=== PATIENT | male | born 1940 | race Caucasian/White ===

== ENCOUNTER 2016-11-26 11:53 | Emergency (ER) | payer OTHER ==
[~2016-11-26] VITALS: Ht 167.6 cm; Wt 121.0 kg
[~2016-11-26 11:53] MED LIST: ALL100 PO; AMLO-110 PO; ASPI81TA28 PO; GLC500 PO; LSX20 PO; SIMV20TA5 PO
[2016-11-26 11:56] VITALS: TEMP 36.4; Ht 167.6 cm; Wt 121.0 kg
--- NOTE | 2016-11-26 12:42 | EMERGENCY ROOM VISIT NOTE ---
ED Visit Note First contact with patient: 12:05 CHIEF COMPLAINT: Wrist injury HISTORY OF PRESENT ILLNESS: This 76-year-old male patient presents to the emergency department ambulatory complaining of pain in the left hand and wrist after slipping while getting out of his truck. The patient states that he slipped off the running board and fell onto an outstretched left hand yesterday. He did not strike his head or have loss of consciousness. He denies any pain in his chest or trouble breathing. He denies any abdominal pain , nausea or vomiting. He denies any lower extremity pain. He denies any other injury or pain. The patient states that his home health nurse contacted the ambulance and sent him to the emergency department for evaluation of the hand. The patient is able to move their wrist. The patient states the pain is mild and 6/10. No laceration, no weakness. No numbness or tingling. The patient denies any other injury. The patient is able to move their fingers and elbow without difficulty. The patient has not had any previous injuries to this wrist. The patient has taken nothing for the pain. REVIEW OF SYSTEMS: A 6 system review of systems was performed with positives and pertinent negatives in the HPI. ALLERGIES: No known allergies MEDICATIONS: See nursing notes PMH: Diabetes, hyperlipidemia, gout SOCIAL HISTORY: The patient lives locally. He is a smoker PHYSICAL EXAM: Vital Signs: Reviewed Nurse's notes, vital signs stable. GENERAL : This is a 76-year-old male, in no acute distress, but appears to be in pain, well-developed, well-nourished. NEURO: Alert and oriented to person place and time. Normal sensation to light and sharp touch. MUSCULOSKELETAL: There is no deformity of the left wrist. There is no erythema and mild ecchymosis. There is mild edema. Tenderness over the distal radius. There is no snuff box tenderness. There is tenderness with deep palpation. Range of motion is intact. There is no tenderness of the elbow,or fingers. There is ecchymosis and tenderness to the left hand particularly over the fourth metacarpal. Botany Technician strength 5/5. Radial pulse 2+. SKIN: Normal and intact. The hand is warm and well perfused with capillary refill less than 2 seconds. EMERGENCY DEPARTMENT COURSE: I examined the patient. An X-ray of the left hand wrist were reviewed by myself and radiology and showed no fracture dislocation. A wrist lacer and kinsey wrap splint was placed under my direction and the position was satisfactory. Neurovascular status rechecked and intact. The patient was discharged home in good condition. The patient was also seen and examined by who agrees with the assessment and treatment plan. DISCHARGE INSTRUCTIONS & TREATMENT: Wear the wrist splint for 4 - 5 days until the pain subsides. Ice and keep the wrist elevated for 24-48 hrs. Ibuprofen, 600mg a every 6 hours if needed for the pain. Follow up with your family doctor or orthopedic surgeon if symptoms persist in 5-7 days. LEFT WRIST W/NAVICULAR MIN 3 VIEWS, LEFT HAND MIN 3 VIEWS ROUTINE CLINICAL HISTORY: left wrist and hand pain, fall COMPARISON STUDY: None. FINDINGS: The bones are osteopenic. 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 No fractures. No dislocation. IMPRESSION: No fracture or dislocation within the left hand or left wrist. LEFT WRIST W/NAVICULAR MIN 3 VIEWS, LEFT HAND MIN 3 VIEWS ROUTINE CLINICAL HISTORY: left wrist and hand pain, fall COMPARISON STUDY: None. FINDINGS: The bones are osteopenic. 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 No fractures. No dislocation. IMPRESSION: No fracture or dislocation within the left hand or left wrist. Problem List Medical Problems: (1) Diabetes Status: Chronic (2) HTN (hypertension) Status: Chronic Current/Historical Medications Scheduled Allopurinol (Zyloprim *), 100 MG PO BID Amlodipine (Norvasc), 5 MG PO DAILY Aspirin (Aspirin Ec), 81 MG PO DAILY Docusate Sodium (Docusate Sodium), 1 CAP PO DAILY Ferrous Gluconate (Ferrous Gluconate), 324 MG PO QAM Furosemide (Lasix *), 20 MG PO DAILY Glyburide (Micronase), 2.5 MG PO QAM Hydrocortisone 1% (Hydrocortisone 1%), 0 TOP UD Metformin HCL (Glucophage *), 1,000 MG PO BID Simvastatin (Zocor), 40 MG PO QPM [Bisacodyl Supp], 1 SUPP RE UD. Allergies Coded Allergies: No Known Allergies (Unverified , 11/26/16) Vital Signs Date Time Temp Pulse Resp B/P Pulse Ox O2 Delivery O2 Flow Rate FiO2 11/26/16 14:33 81 20 142/77 96 11/26/16 11:56 36.4 76 18 143/82 95 Room Air Departure Information Impression Primary Impression: Hand contusion Additional Impression: Wrist sprain Dispostion Home / Self-Care Condition GOOD Referrals Erlin Durham D.O. (PCP) Patient Instructions ED Contusion Hand, [facility] Additional Instructions Wear the wrist splint for 4 - 5 days until the pain subsides. Ice and keep the wrist elevated for 24-48 hrs. Ibuprofen, 600mg a every 6 hours if needed for the pain. Follow up with your family doctor or orthopedic surgeon if symptoms persist in 5-7 days. Problem Qualifiers Primary Impression: Hand contusion Encounter type: initial encounter Laterality: left Qualified Codes: S60.222A - Contusion of left hand, initial encounter Additional Impression: Wrist sprain Encounter type: initial encounter Laterality: left Qualified Codes: S63.502A - Unspecified sprain of left wrist, initial encounter
[2016-11-26] MEDS ORDERED: GLYB5TAB8 PO (12:46)
[2016-11-26] MEDS ORDERED: FERR325T18 PO (12:46)
[2016-11-26] MEDS ORDERED: HYDCR1CL TOP (12:46)
[2016-11-26] MEDS ORDERED: BISACODYL SUPP RE (12:46)
[2016-11-26] MEDS ORDERED: DOCU100C31 PO (12:46)
--- NOTE | 2016-11-26 13:30 | EMERGENCY ROOM VISIT NOTE ---
ED Visit Note First contact with patient: 12:05 76-year-old male with left hand pain was fully evaluated by Tita Angeles PA-C. Please see her note. I also independently evaluated the patient and his x-rays.
--- NOTE | 2016-11-26 13:32 | DIAGNOSTIC IMAGING REPORT ---
LEFT WRIST W/NAVICULAR MIN 3 VIEWS, LEFT HAND MIN 3 VIEWS ROUTINE CLINICAL HISTORY: left wrist and hand pain, fall COMPARISON STUDY: None. FINDINGS: The bones are osteopenic. 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 No fractures. No dislocation. IMPRESSION: No fracture or dislocation within the left hand or left wrist. Electronically signed by: Andrzej Mosqueda M.D. 11/26/2016 1:31 PM Dictated Date/Time: 11/26/2016 1:27 PM
[2016-11-26 14:33] VITALS: BP 142/77; PULSE 81; O2SAT 96
[2016-11-27] MEDS ORDERED: CIPR1TAB11 PO (00:26)
[2016-12-06] MEDS ORDERED: SENN8.6T7 PO (14:38)
[2016-12-06] MEDS ORDERED: MCTP EXT (14:38)
[2016-12-06] MEDS ORDERED: TYL325X PO (14:38)
[2016-12-06] MEDS ORDERED: Roxanol PO (14:38)
[2016-12-06] MEDS ORDERED: LCTL45 PO (14:38)
[2016-12-06] MEDS ORDERED: MRLP17 PO (14:38)
== END 2016-11-26 14:35 | disposition home or self-care (01) ==
LOC: EDBD 11:53 → C.EDD 11:54
DX: S60.222A Contusion of left hand, initial encounter (principal); S63.502A Unspecified sprain of left wrist, initial encounter; W17.89XA Other fall from one level to another, initial encounter; E11.9 Type 2 diabetes mellitus without complications; E78.5 Hyperlipidemia, unspecified; Z79.82 Long term (current) use of aspirin

== ENCOUNTER 2016-12-01 23:10 | Inpatient (IN) | payer OTHER ==
[~2016-12-01] VITALS: Ht 167.6 cm; Wt 122.2 kg
[~2016-12-01 23:10] MED LIST changes: +BISACODYL SUPP RE; +CIPR1TAB11 PO; +DOCU100C31 PO; +FERR325T18 PO; +GLYB5TAB8 PO; +HYDCR1CL TOP
--- NOTE | 2016-12-02 00:18 | EMERGENCY ROOM VISIT NOTE ---
History Report prepared by Jayshree: Yvon Tapia Under the Supervision of: Dr. Lakeisha Villagran D.O. First contact with patient: 23:59 Chief Complaint: OTHER COMPLAINT History of Present Illness The patient is a 76 year old male who presents to the Emergency Room with complaints of increased pain with urination. The pain is described as a burning sensation that is rated 8/10 in severity. He has also been dealing with urinary retention and hematuria. The patient was diagnosed with penile cancer several days ago by [facility]. They attempted to place a urinary catheter but were unsuccessful. The patient is not sure what the treatment plan is. The patient notes increased generalized weakness that is making it difficult for him to get around. He normally ambulates with a walker. The patient has been eating and drinking okay. He denies shortness of breath or abdominal pain. He has also been constipated. The patient came to the ED by ambulance tonight. He takes Metformin for Diabetes. He lives alone and does not have family to help him. He has a friend that occasionally helps take care of him, and his neighbor prepares his meals. Source of History: patient Position: other (urinary) Symptom Intensity: 8/10 Quality: burning Timing: other (increased) Associated Symptoms: + urinary symptoms, + weakness, No SOB, No abdominal pain Review of Systems See HPI for pertinent positives & negatives. A total of 10 systems reviewed and were otherwise negative. Past Medical & Surgical Medical Problems: (1) Diabetes (2) Gout (3) HLD (hyperlipidemia) (4) HTN (hypertension) (5) Urinary retention Family History Diabetes mellitus Social History Smoking Status: Current Every Day Smoker Marital Status: Housing Status: lives alone Occupation Status: retired Current/Historical Medications Scheduled Allopurinol (Zyloprim), 100 MG PO DAILY Amlodipine (Norvasc), 5 MG PO DAILY Aspirin (Aspirin Ec), 81 MG PO DAILY Ciprofloxacin Tab (Cipro), 250 MG PO Q12 Docusate Sodium (Docusate Sodium), 100 MG PO DAILY Ferrous Gluconate (Fe Gluconate), 325 MG PO DAILY Furosemide (Lasix), 20 MG PO QAM Furosemide (Lasix), 20 MG PO 2XWK Metformin Hcl (Glucophage), 1,000 MG PO BID Allergies Coded Allergies: No Known Allergies (Unverified , 11/26/16) Physical Exam Vital Signs Date Time Temp Pulse Resp B/P Pulse Ox O2 Delivery O2 Flow Rate FiO2 12/02/16 02:37 69 19 128/71 94 12/02/16 01:07 64 19 125/83 96 Room Air 12/01/16 23:16 36.7 72 20 106/64 96 Room Air Physical Exam General: Unkempt appearing. HEENT: Head - normocephalic and atraumatic Pupils are equal, round, and reactive to light. Extraocular eye muscles are intact, and sclera are anicteric. Nose - moist nasal mucosa without discharge. Mouth - dry buccal mucosa. Oropharynx is nonerythematous and there is no tonsillar exudate or edema noted. Neck: Supple; no JVD, nuchal rigidity, cervical lymphadenopathy. Heart: Regular rate and rhythm. There is a normal S1 and S2 with no murmurs, clicks, or gallops appreciated. Lungs: Clear to auscultation bilaterally with no wheezes, rales, or rhonchi. Abdomen: Soft, completely nontender, nondistended, with good bowel sounds. There are no palpable pulsatile masses or hepatosplenomegaly. There is no guarding, rigidity, or rebound noted. Extremities: No evidence of cyanosis, clubbing, or edema. There are easily palpable peripheral pulses. Skin: Skin is dry with poor turgor.. Medical Decision & Procedures Laboratory Results Test 12/02/16 00:28 12/02/16 01:51 RDW Standard Deviation 47.4 fL (36.4-46.3) RDW Coefficient of Variation 13.7 % (11.5-14.5) White Blood Count 20.83 K/uL (4.8-10.8) Red Blood Count 4.70 M/uL (4.7-6.1) Hemoglobin 15.5 g/dL (14.0-18.0) Hematocrit 44.8 % (42-52) Mean Corpuscular Volume 95.3 fL (80-100) Mean Corpuscular Hemoglobin 33.0 pg (25-34) Mean Corpuscular Hemoglobin Concent 34.6 g/dl (32-36) Platelet Count 418 K/uL (130-400) Mean Platelet Volume 10.0 fL (7.4-10.4) Neutrophils (%) (Auto) 82.7 % Lymphocytes (%) (Auto) 8.1 % Monocytes (%) (Auto) 7.3 % Eosinophils (%) (Auto) 0.3 % Basophils (%) (Auto) 0.1 % Neutrophils # (Auto) 17.20 K/uL (1.4-6.5) Lymphocytes # (Auto) 1.68 K/uL (1.2-3.4) Monocytes # (Auto) 1.53 K/uL (0.11-0.59) Eosinophils # (Auto) 0.07 K/uL (0-0.5) Basophils # (Auto) 0.03 K/uL (0-0.2) Immature Granulocyte % (Auto) 1.5 % Immature Granulocyte # (Auto) 0.32 K/uL (0.00-0.02) Prothrombin Time 13.1 SECONDS (9.0-12.0) Prothromb Time International Ratio 1.2 (0.9-1.1) Activated Partial Thromboplast Time 31.8 SECONDS (21.0-31.0) Partial Thromboplastin Ratio 1.2 Total Creatine Kinase 22 U/L (39-308) Creatine Kinase MB < 0.5 ng/ml (0.5-3.6) Creatine Kinase MB Ratio (0-3.0) Troponin I 0.016 ng/ml (0-0.045) Thyroid Stimulating Hormone (TSH) 0.571 uIu/ml (0.300-4.500) Bedside Lactic Acid Venous 1.78 mmol/L (0.90-1.70) Laboratory results per my review. Medications Administered Medications (Trade) Dose Ordered Sig/Lorena Route Start Time Stop Time Status Last Admin Dose Admin Daptomycin 600 mg/ Sodium Chloride 62 ml @ 100 mls/hr NOW STAT IV 12/02/16 02:18 12/02/16 02:55 DC 12/02/16 03:14 100 MLS/HR Imipenem/ Cilastatin Sodium/ Dextrose (Primaxin Iv/D5 100ml) 110 ml @ 100 mls/hr NOW STAT IV 12/02/16 02:18 12/02/16 03:23 DC 12/02/16 03:14 100 MLS/HR Procedure Medications administered include Imipenem / Cilastatin Sodium / Dextrose IV, Daptomycin / NSS IV. ECG Indication: weakness Rate (beats per minute): 71 Rhythm: normal sinus Findings: PVC, RBBB, no acute ischemic change Comparison ECG Date: 2015 Change: no significant change ED Course 0003: Past medical records reviewed. The patient was evaluated in room C12b. A complete history and physical exam was performed. An IV lock was initiated and labs are drawn as above. A twelve-lead EKG was obtained as described above. 0040: The patient saw his PCP, Dr. Durham, on 11/27. He had CT Abdomen & Pelvis on 11/28 that showed an irregular mass at the right lung base. He had an abnormally appearing scrotum which could potentially represent malignancy or infection. Significant inguinal lymphadenopathy, left greater than right. He saw Dr. Parnell, Urologist, on November 22. She noted a growth on his penis. Urethral meatus was not visualized. Infected necrotic tissue was noted. He was started antibiotics. 0119: The patient has been unable to urinate thus far. 0210: Updated the patient. 0218: Imipenem / Cilastatin Sodium 500 mg / Dextrose 110 ml @ 100 mls/hr, Daptomycin 600 mg / NSS 62 ml @ 100 mls/hr. 0220: Discussed the case with Dr. [facility]. The patient will be evaluated. 0230: The patient was moved to . Medical Decision The patient is a 76 year old male who presents to the ED with urinary burning. Differential diagnosis includes UTI, urinary retention, anemia, hyperglycemia. Laboratory interpretation: Lactic acid 1.78, white count 20.8, stable H&H, 82% neutrophils, normal renal function, glucose 113, total bilirubin 1.4, direct bilirubin 0.9, AST 88, ALT 82, alk phos 308, normal TSH, INR 1.2. This is a 76-year-old male patient who presents to urgency department stating that he is unable take care of himself at home. The patient was recently diagnosed with penile cancer. They attempted to pass a urinary catheter last week but were unsuccessful. The patient is now unable to urinate normally. The patient did meet with urology and refused any type of intervention except for catheter placement. He does wish to go on hospice care. It seems that the patient may require a suprapubic catheter at this time for comfort care measures. The patient has become extremely weak. He has significant leukocytosis with a white count of 20.8. We were unable to obtain a urine specimen for urinalysis. He was able to give a couple drops of urine which will be sent for culture. The patient was started on daptomycin and Primaxin. I discussed the case with the [facility] and they will evaluate for further management. Consults Time Called: 209 Consulting Physician[facility] Returned Call: [phone]: Discussed the case with Perez Moore. The patient will be evaluated. Impression Primary Impression: Urinary retention Additional Impression: SIRS (systemic inflammatory response syndrome) Scribe Attestation The scribe's documentation has been prepared under my direction and personally reviewed by me in its entirety. I confirm that the note above accurately reflects all work, treatment, procedures, and medical decision making performed by me. Departure Information Dispostion Being Evaluated By Hospitalist Referrals Erlin Durham D.O. (PCP) Patient Instructions [facility] Problem Qualifiers
[2016-12-02] MEDS ORDERED: ALLO100T PO (00:22)
[2016-12-02] MEDS ORDERED: FERR325T49 PO (00:22)
[2016-12-02] MEDS ORDERED: METF-384 PO (00:25)
[2016-12-02] MEDS ORDERED: FURO-85 PO ×2 (00:25)
[2016-12-02 00:39] LABS: BASO % 0.1 %; BASO ABS # 0.03 K/uL (0-0.2); COMPLETE YES; EOS % 0.3 %; HEMATOCRIT 44.8 % (42-52); IG% 1.5 %; LYMPH % 8.1 %; LYMPH ABS # 1.68 K/uL (1.2-3.4); MEAN CELL VOLUME 95.3 fL (80-100); MEAN CORPUSCULAR HGB CONC 34.6 g/dl (32-36); MONO % 7.3 %; NEUT % 82.7 %; PLATELET COUNT 418 K/uL (130-400); WHITE BLOOD COUNT 20.83 K/uL (4.8-10.8)
[2016-12-02 00:52] LABS: INR 1.2 (0.9-1.1); PARTIAL THROMBOPLASTIN RATIO 1.2; PROTHROMBIN TIME (PATIENT) 13.1 SECONDS (9.0-12.0)
[2016-12-02 01:14] LABS: ALT/SGPT 82 U/L (12-78); AST/SGOT 88 U/L (15-37); BLOOD UREA NITROGEN 16 mg/dl (7-18); BUN/CREATININE RATIO 16.2 (10-20); CARBON DIOXIDE 34 mmol/L (21-32); CHLORIDE 95 mmol/L (98-107); GLUCOSE 113 mg/dl (70-99); SODIUM 135 mmol/L (136-145)
[2016-12-02 01:25] LABS: ALKALINE PHOSPHATASE 308 U/L (45-117); THYROID STIMULATING HORMONE 0.571 uIu/ml (0.300-4.500)
[2016-12-02] MEDS ORDERED: DAPTOmycin IV 600 MG in SODIUM CHLORIDE 0.9% 50ML 50 ML IV STA (02:18)
[2016-12-02] MEDS ORDERED: IMIPENEM/CILASTATIN IV 500 MG in DEXTROSE 5% 100ML 100 ML IV STA (02:18)
--- NOTE | 2016-12-02 03:09 | History and Physical ---
History & Physical Date & Time of Service: Dec 02, 2016 at 03:08 Chief Complaint: Primary Care Physician: Erlin Durham D.O. 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 Seen at [facility] clinic by Dr Parnell on -for evaluation of Hematuria , bladder USG shows numerous mass, has necrotic growth in penis very advanced malignancy with localized invasion -necrosis of penis , pt refused to have any chemo , radiation tx done Hospice was recommended by Urology pt lives by himself alone , with metastatic Ca very poor prognosis, failure to thrive D/w Pt at bedside -willing for comfort care /hospice social service /palliative care consult requested Past Medical/Surgical History Medical Problems: (1) Diabetes Status: Chronic (2) Gout Status: Chronic (3) HLD (hyperlipidemia) Status: Chronic (4) HTN (hypertension) Status: Chronic Family History Diabetes mellitus Social History Smoking Status: Current Every Day Smoker Marital Status: Occupational Status: retired Immunizations History of Influenza Vaccine: Yes History of Tetanus Vaccine?: No History of Pneumococcal: No History of Hepatitis B Vaccine: No Allergies Coded Allergies: No Known Allergies (Unverified , 11/26/16) Home Medications Scheduled Allopurinol (Zyloprim), 100 MG PO DAILY Amlodipine (Norvasc), 5 MG PO DAILY Aspirin (Aspirin Ec), 81 MG PO DAILY Ciprofloxacin Tab (Cipro), 250 MG PO Q12 Docusate Sodium (Docusate Sodium), 100 MG PO DAILY Ferrous Gluconate (Fe Gluconate), 325 MG PO DAILY Furosemide (Lasix), 20 MG PO QAM Furosemide (Lasix), 20 MG PO 2XWK Metformin Hcl (Glucophage), 1,000 MG PO BID Review of Systems Constitutional: + fatigue, + sweats, + weakness, + weight loss Respiratory: + dyspnea at rest, + dyspnea on exertion, + shortness of breath Cardiovascular: + edema Abdomen: + constipation, + nausea, + vomiting Musculoskeletal: + joint pain Genitourinary - Male: + hematuria, + penile discharge, + problem reported ( metastastic penile Ca ), + urinary retention Neurologic: + balance problems (frequen fall ) Physical Exam Vital Signs Date Time Temp Pulse Resp B/P Pulse Ox O2 Delivery O2 Flow Rate FiO2 12/02/16 02:37 69 19 128/71 94 12/02/16 01:07 64 19 125/83 96 Room Air 12/01/16 23:16 36.7 72 20 106/64 96 Room Air General Appearance: + obese Eyes: sclerae normal Respiratory/Chest: lungs clear, normal breath sounds, no respiratory distress Cardiovascular: regular rate, rhythm Abdomen/GI: soft, + distended Genitourinary - Male: + penile abnormality (complete destruction of uretheal orifice due cancer , red indudated scrotum with foul smelling , necrotic tisseue and pulurent drainage ), + urethral discharge Extremities/Musculoskelatal: + pedal edema (2-3 ) Neurologic/Psych: alert, oriented x 3 Diagnostics Laboratory Results Results Past 24 Hours Test 12/02/16 00:28 12/02/16 01:51 Range/Units White Blood Count 20.83 4.8-10.8 K/uL Red Blood Count 4.70 4.7-6.1 M/uL Hemoglobin 15.5 14.0-18.0 g/dL Hematocrit 44.8 42-52 % Mean Corpuscular Volume 95.3 80-100 fL Mean Corpuscular Hemoglobin 33.0 25-34 pg Mean Corpuscular Hemoglobin Concent 34.6 32-36 g/dl Platelet Count 418 130-400 K/uL Mean Platelet Volume 10.0 7.4-10.4 fL Neutrophils (%) (Auto) 82.7 % Lymphocytes (%) (Auto) 8.1 % Monocytes (%) (Auto) 7.3 % Eosinophils (%) (Auto) 0.3 % Basophils (%) (Auto) 0.1 % Neutrophils # (Auto) 17.20 1.4-6.5 K/uL Lymphocytes # (Auto) 1.68 1.2-3.4 K/uL Monocytes # (Auto) 1.53 0.11-0.59 K/uL Eosinophils # (Auto) 0.07 0-0.5 K/uL Basophils # (Auto) 0.03 0-0.2 K/uL RDW Standard Deviation 47.4 36.4-46.3 fL RDW Coefficient of Variation 13.7 11.5-14.5 % Immature Granulocyte % (Auto) 1.5 % Immature Granulocyte # (Auto) 0.32 0.00-0.02 K/uL Prothrombin Time 13.1 9.0-12.0 SECONDS Prothromb Time International Ratio 1.2 0.9-1.1 Activated Partial Thromboplast Time 31.8 21.0-31.0 SECONDS Partial Thromboplastin Ratio 1.2 Sodium Level 135 136-145 mmol/L Potassium Level 4.0 3.5-5.1 mmol/L Chloride Level 95 98-107 mmol/L Carbon Dioxide Level 34 21-32 mmol/L Anion Gap 6.0 3-11 mmol/L Blood Urea Nitrogen 16 7-18 mg/dl Creatinine 1.00 0.60-1.40 mg/dl Estimated GFR () 83.8 Estimated GFR (Non- 72.3 BUN/Creatinine Ratio 16.2 10-20 Random Glucose 113 70-99 mg/dl Calcium Level 10.0 8.5-10.1 mg/dl Total Bilirubin 1.4 0.2-1 mg/dl Direct Bilirubin 0.9 0-0.2 mg/dl Aspartate Amino Transf (AST/SGOT) 88 15-37 U/L Alanine Aminotransferase (ALT/SGPT) 82 12-78 U/L Alkaline Phosphatase 308 45-117 U/L Total Creatine Kinase 22 39-308 U/L Creatine Kinase MB < 0.5 0.5-3.6 ng/ml Creatine Kinase MB Ratio 0-3.0 Troponin I 0.016 0-0.045 ng/ml Total Protein 8.1 6.4-8.2 gm/dl Albumin 2.1 3.4-5.0 gm/dl Thyroid Stimulating Hormone (TSH) 0.571 0.300-4.500 uIu/ml Bedside Lactic Acid Venous 1.78 0.90-1.70 mmol/L Microbiology Results 12/02/16 Blood Culture, Received Pending 12/02/16 Blood Culture, Received Pending 12/02/16 Urine Culture, Received Pending Diagnostic Radiology CT SCAN OF THE ABDOMEN AND PELVIS WITHOUT IV CONTRAST CLINICAL HISTORY: Generalized abdominal pain. IMPRESSION: 1. Significantly suboptimal examination without oral and IV contrast. 2. There are no acute infectious or inflammatory findings in the abdomen or pelvis. 3. There is a 3.2 cm spiculated mass at the right lung base. This is highly concerning for lung cancer. 4. There are additional pulmonary nodules seen in the lower lobes bilaterally. 5. Cirrhotic liver morphology. 6. Cholelithiasis. 7. Cardiomegaly. 8. Enlarged inguinal lymph nodes are nonspecific and may be reactive. Clinical correlation will be required. 9. Additional findings as above. ABDOMINAL ULTRASOUND, RIGHT UPPER QUADRANT HISTORY: Elevated liver function tests. COMPARISON: CT of the abdomen and pelvis December 02, 2016. FINDINGS: Hepatic echogenicity is increased. There is slight nodularity of the liver surface with heterogeneity of the liver which may reflect cirrhosis. No hepatic lesions are identified although sensitivity is diminished on this exam. There is no biliary ductal dilatation. There is a gallstone within the gallbladder. There is no gallbladder wall thickening. The pancreas is obscured. There is no right hydronephrosis. There is a 2.2 cm right renal cyst. IMPRESSION: 1. Fatty liver. 2. Slight nodularity of the liver surface and heterogeneity of the liver which may reflect cirrhosis. 3. No biliary ductal dilatation. 4. Cholelithiasis. No sonographic evidence of acute cholecystitis. 5. Obscured pancreas. Impression Assessment and Plan METASTATIC PENILE .SCROTAL .BLADDER CA; hx of life long smoker recently Dx at Urology office on 11/22/16 -with wide spread metastatic Ca and locally advanced disease Pt refused to have chemo or radiation given his co-morbidities -not a candidate for aggressive treatment presented with Urinary retention , sepsis due to UTI , weakness, fall , failure to thrive after D/w Dr Parnell -pt was already discussed regarding Hospice care in office palliative care consult placed D/w pt -in agreement with comfort care , does not want blood draw , ABx treatment as it will not provide any benefit to him at this stage wants pain to be well controlled and manage constipation given his advanced malignancy , ongoing sepsis , urinary retention -do not belief pt will be have to have hospice care at home ( lives alone , with none or limited family support ) pt is concerned regarding cost /insurance coverage for hospice care Social service consulted for discharge planning DNR/DNI Level of Care Med/Surg Resuscitation Status DO NOT RESUSCITATE VTE Prophylaxis VTE Risk Assessment Done? Y/N: Yes Risk Level: Moderate Additional Copies To Lindsey Parnell MD; Erlin Durham D.O.
[2016-12-02] MEDS ORDERED: GLUCOSE 40% GEL 15 GM TUBE PO PRN (03:15)
[2016-12-02] MEDS ORDERED: POLYETHYLENE (MIRALAX) 17 GM PACK PO PRN (03:15)
[2016-12-02] MEDS ORDERED: ONDANSETRON INJ 2 MG/ML 2 ML VIAL IV PRN (03:15)
[2016-12-02] MEDS ORDERED: ALUMINUM/MAGNESIUM/SIMETH (MAALOX MAX) 30 ML UDC PO PRN (03:15)
[2016-12-02] MEDS ORDERED: GLUCOSE 10 TABS/TUBE PO PRN (03:15)
[2016-12-02] MEDS ORDERED: DEXTROSE 50% 50 ML SYR IV PRN (03:15)
[2016-12-02] MEDS ORDERED: MoRPHine SULFATE 2 MG/ML CARP IV PRN ×2 (03:15)
[2016-12-02] MEDS ORDERED: ZOLPIDEM TARTRATE 5 MG TAB PO PRN (03:15)
[2016-12-02] MEDS ORDERED: MAGNESIUM HYDROXIDE SUSP 30 ML UDC PO PRN (03:15)
[2016-12-02] MEDS ORDERED: ACETAMINOPHEN 325 MG TAB PO PRN (03:15)
[2016-12-02] MEDS ORDERED: GLUCAGON FOR INJ 1 MG VIAL SQ PRN (03:15)
[2016-12-02 04:15] VITALS: BP 153/51; PULSE 70; TEMP 36.8; O2SAT 91; BMI 43.5
[2016-12-02] MEDS ORDERED: NURSING DECISION MEDICATION ORDER SCH (05:30)
[2016-12-02] MEDS ORDERED: MICONAZOLE NITRATE POWDER 43 GM EXT PRN (05:30)
[2016-12-02] MEDS ORDERED: CEFTRIAXONE SOD INJ 1 GM in DEXTROSE 5% ADD-VANTAGE 50ML 50 ML IV SCH (06:00)
[2016-12-02] MEDS ORDERED: HEPARIN SOD 5000 UNIT/0.5 ML CARP SQ SCH (06:00)
[2016-12-02 06:47] LABS: HEMATOCRIT 41.4 % (42-52); MEAN CELL VOLUME 94.7 fL (80-100); MEAN CORPUSCULAR HEMOGLOBIN 32.5 pg (25-34); MEAN CORPUSCULAR HGB CONC 34.3 g/dl (32-36); PLATELET COUNT 423 K/uL (130-400); RED BLOOD COUNT 4.37 M/uL (4.7-6.1); WHITE BLOOD COUNT 22.49 K/uL (4.8-10.8)
[2016-12-02] MEDS ORDERED: INSULIN HUMAN REGULAR SC SCH (07:00)
[2016-12-02 07:20] LABS: BUN/CREATININE RATIO 19.6 (10-20); CALCIUM 9.9 mg/dl (8.5-10.1); CREATININE 0.9 mg/dl (0.60-1.40); POTASSIUM 3.9 mmol/L (3.5-5.1)
--- NOTE | 2016-12-02 07:20 | DIAGNOSTIC IMAGING REPORT ---
ABDOMINAL ULTRASOUND, RIGHT UPPER QUADRANT HISTORY: Elevated liver function tests. COMPARISON: CT of the abdomen and pelvis December 02, 2016. FINDINGS: Hepatic echogenicity is increased. There is slight nodularity of the liver surface with heterogeneity of the liver which may reflect cirrhosis. No hepatic lesions are identified although sensitivity is diminished on this exam. There is no biliary ductal dilatation. There is a gallstone within the gallbladder. There is no gallbladder wall thickening. The pancreas is obscured. There is no right hydronephrosis. There is a 2.2 cm right renal cyst. IMPRESSION: 1. Fatty liver. 2. Slight nodularity of the liver surface and heterogeneity of the liver which may reflect cirrhosis. 3. No biliary ductal dilatation. 4. Cholelithiasis. No sonographic evidence of acute cholecystitis. 5. Obscured pancreas. Electronically signed by: Wilbur Cary M.D. 12/02/2016 7:17 AM Dictated Date/Time: 12/02/2016 7:15 AM
--- NOTE | 2016-12-02 07:43 | DIAGNOSTIC IMAGING REPORT ---
CT SCAN OF THE ABDOMEN AND PELVIS WITHOUT IV CONTRAST CLINICAL HISTORY: Generalized abdominal pain. COMPARISON STUDY: No priors. TECHNIQUE: CT scan of the abdomen and pelvis is performed from the lung bases to the proximal femora. Images are reviewed in the axial, sagittal, and coronal planes. IV contrast was not administered for this examination as per the referring clinician. Note that the examination was performed in significantly suboptimal fashion without oral and IV contrast. Automated dose control exposure was utilized. CT DOSE: 2008.50 mGy.cm FINDINGS: Lung bases: The heart is enlarged and without pericardial effusion. The coronary arteries are densely calcified. There is a tiny hiatal hernia. There is a 3.2 x 1.9 cm spiculated mass at the right lung base seen on axial image #105. A 9 mm nodule in the right lower lobe as seen on image #73. A 6 mm left lower lobe pulmonary nodule is seen on image #25. There is no airspace consolidation typical for pneumonia or pleural effusion. Liver: The unenhanced liver is cirrhotic in morphology and heterogeneous in attenuation. There is nodularity of the surface contour. There is no intrahepatic biliary ductal dilatation. Gallbladder: There are calcified gallstones identified. Spleen: Normal in size and attenuation. Tiny calcified splenic granulomas are observed. Pancreas: Atrophic. Adrenal glands: Unremarkable. Kidneys: The unenhanced kidneys are atrophic and without hydronephrosis. There are no renal calculi identified. There is a 1.9 cm cyst in the lower pole of the right kidney. Abdominal vasculature: The abdominal aorta is normal in course and caliber noting moderate to advanced atherosclerotic calcification. Bowel: The small bowel and colon are normal in course and caliber. The appendix is normal in appearance. Peritoneum: There is no intraperitoneal free air or abdominal ascites. Lymphadenopathy: There are mildly enlarged bilateral inguinal lymph nodes which measure up to 2.2 cm in short axis. There is no upper abdominal, retroperitoneal, or mesenteric lymphadenopathy. 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 The pelvic viscera is not well assessed. There is a large fat-containing right inguinal hernia. Skeletal structures: The skeletal structures are osteopenic. Moderate lumbosacral spondylosis is observed. There is a mild compression deformity of L4. No lytic or blastic lesions are seen. IMPRESSION: 1. Significantly suboptimal examination without oral and IV contrast. 2. There are no acute infectious or inflammatory findings in the abdomen or pelvis. 3. There is a 3.2 cm spiculated mass at the right lung base. This is highly concerning for lung cancer. 4. There are additional pulmonary nodules seen in the lower lobes bilaterally. 5. Cirrhotic liver morphology. 6. Cholelithiasis. 7. Cardiomegaly. 8. Enlarged inguinal lymph nodes are nonspecific and may be reactive. Clinical correlation will be required. 9. Additional findings as above. Electronically signed by: Vini Rivers M.D. 12/02/2016 7:41 AM Dictated Date/Time: 12/02/2016 7:32 AM
[2016-12-02] MEDS ORDERED: PNEUMOCOCCAL POLYSACCHARIDES 25 MCG/0.5 ML VIAL/SYR IM. ONE (08:00)
[2016-12-02] MEDS ORDERED: PNEUMOCOCCAL ADMINISTRATION CHARGE ONE (08:00)
[2016-12-02 08:01] VITALS: BP 136/86; PULSE 72; TEMP 36.5; O2SAT 94
[2016-12-02 08:09] VITALS: O2SAT 94
[2016-12-02] MEDS ORDERED: DOCUSATE SODIUM 100 MG CAP PO SCH (09:00)
[2016-12-02] MEDS ORDERED: ALLOPURINOL 100 MG TAB PO SCH (09:00)
[2016-12-02] MEDS ORDERED: FERROUS GLUCONATE 324 MG TAB PO SCH (09:00)
[2016-12-02] MEDS ORDERED: AMLODIPINE BESYLATE 5 MG TAB PO SCH (09:00)
[2016-12-02 11:06] VITALS: Ht 167.6 cm; Wt 122.2 kg
[2016-12-02] MEDS: POLYETHYLENE (MIRALAX) 17 GM PACK PO SCH ×2 (13:48→20:46)
[2016-12-02 15:11] VITALS: BP 142/93; PULSE 61; TEMP 36.3; O2SAT 94
--- NOTE | 2016-12-02 17:10 | Progress Note ---
Progress Note Date of Service Dec 02, 2016. Progress Note Patient has known METASTATIC PENILE .SCROTAL .BLADDER CA; and his condition is gradually deteriorating. He has chosen to follow [facility]. Pain management as per need. Palliative care consult. patient is DNR. Kennedy Anderson MD
[2016-12-02] MEDS: MoRPHine SULFATE 2 MG/ML CARP IV PRN ×2 (18:27→23:01)
[2016-12-02] MEDS: DOCUSATE SODIUM 100 MG CAP PO SCH (20:47)
[2016-12-03] MEDS: MoRPHine SULFATE 2 MG/ML CARP IV PRN ×4 (03:12→18:22)
[2016-12-03] MEDS: POLYETHYLENE (MIRALAX) 17 GM PACK PO SCH ×3 (08:00→18:27)
[2016-12-03] MEDS: DOCUSATE SODIUM 100 MG CAP PO SCH ×2 (13:33→18:27)
[2016-12-03 16:03] VITALS: O2SAT 94
--- NOTE | 2016-12-03 16:47 | Palliative Care Consultation ---
Consultation Date of Consultation: Dec 03, 2016. Requesting Physician: Monica Attending Physician: Lea Reason for Consultation: Goals of care History of Present Illness This 76 year old male patient presented to the ED yesterday with urinary retention/difficulty urinating. 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 The patient was seen in Dr. Parnell office on 11/22/16 for eval of hematuria, "bladder US showed numerous mass, has necrotic growth in penis, very advanced malignancy with localized invasion -necrosis of penis." Patient has been refusing/declining any sort of radiation or chemotherapy and wishes to just be comfortable. Palliative consulted to assist with goals of care. I met with the patient in room 420. He is awake, alert and oriented x4. He denies any pain, SOB, or discomfort at this time. Only has localized pain in penis/scrotum during personal care. Patient stated, "I don't want anything done, " when asked about his cancer diagnosis. He declined even having an oncology consult. He is still having some difficulty urinating but has been able to void since admission. Patient's goal is to go to rehab to try and get stronger, but he stated he knows he will not be able to go home and care for himself. He decided to be "comfort measures only," and is open to hospice care after the skilled stay at SNF. POLST form completed. See plan below. Past Medical/Surgical History Medical History: Gout DM HLD HTN Social History Smoking Status: Current Every Day Smoker History of Alcohol Use: No Marital Status: Occupation Status: retired Review of Systems Constitutional: + weakness Respiratory: + dyspnea on exertion (mild), No cough, No shortness of breath Cardiac: No chest pain Abdomen: No nausea, No pain, No vomiting Male : + see HPI Psychiatric: No anxiety, No depression symptoms Skin: + see HPI Allergies Coded Allergies: No Known Allergies (Unverified , 11/26/16) Medications Current Inpatient Medications Medications (Trade) Dose Ordered Sig/Lorena Route Start Time Stop Time Status Last Admin Dose Admin Acetaminophen (Tylenol Tab) 650 mg Q4H PRN PO 12/02/16 03:15 01/01/17 03:14 Al Hydrox/Mg Hydrox/Simethicone (Maalox Max Susp) 15 ml Q4H PRN PO 12/02/16 03:15 01/01/17 03:14 Magnesium Hydroxide (Milk Of Magnesia Susp) 30 ml Q6H PRN PO 12/02/16 03:15 01/01/17 03:14 Zolpidem Tartrate (Ambien Tab) 5 mg HSZ PRN PO 12/02/16 03:15 01/01/17 03:14 Ondansetron HCl (Zofran Inj) 4 mg Q6H PRN IV 12/02/16 03:15 01/01/17 03:14 Miconazole Nitrate (Desenex Powder) 1 appln PRN PRN EXT 12/02/16 05:30 01/01/17 05:29 Docusate Sodium (coLACE CAP) 100 mg BID PO 12/02/16 21:00 01/01/17 20:59 12/02/16 20:47 100 MG Polyethylene (Miralax Powder Packet) 17 gm TID PO 12/02/16 14:00 01/01/17 13:59 12/02/16 20:46 17 GM Morphine Sulfate (MoRPHine SULFATE INJ) 2 mg Q1H PRN IV 12/02/16 11:00 12/16/16 10:59 12/03/16 10:35 2 MG Physical Exam Date Time Temp Pulse Resp B/P Pulse Ox O2 Delivery O2 Flow Rate FiO2 12/03/16 10:52 Room Air 12/03/16 00:00 Room Air 12/02/16 21:50 Room Air 12/02/16 15:50 Room Air 12/02/16 15:11 36.3 61 18 142/93 94 Room Air General Appearance: no apparent distress, + obese ENT: hearing grossly normal Neck: no JVD Respiratory: no respiratory distress, no accessory muscle use, + decreased breath sounds Cardiovascular: regular rate, rhythm, + normal peripheral pulses Abdomen: normal bowel sounds, non tender, soft, + pertinent finding (obese abdomen) Neurologic/Psychiatric: alert, normal mood/affect, oriented x 3 Skin: + pertinent finding (scrotum is red, swollen and hardened. 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 -SNF for skilled care. Transition to hospice eventually as patient's goal is for comfort and to stay out of the hospital. -He has no pain at this time, but I would send a script for Roxanol 5mg PO Q3h PRN pain or SOB. -Uncertain of whether or not a urology consult would be beneficial at this point. Will speak with physician. Thank you kindly for this consult. I will follow as needed.
--- NOTE | 2016-12-03 21:17 | Progress Note ---
Medicine Progress Note Date & Time of Visit: Dec 03, 2016 at 21:14. Subjective resting states pain is recurring no nausea, chest pain, dyspnea still urinating no oter symptoms Objective Last 8 Hrs Date Time Temp Pulse Resp B/P Pulse Ox O2 Delivery O2 Flow Rate FiO2 12/03/16 16:03 94 Room Air Physical Exam: General-[] Eyes-[] ENT-[] Neck-[] Lungs-[] Heart-[] Abdomen-[] Extremities-[] Neuro-[] Assessment & Plan METASTATIC PENILE .SCROTAL .BLADDER CA - patient reports that he is still urinating - PRN Morphine for pain Senokot S added - possible transition to SNF with Hospice - Palliative Care SVC on board Current Inpatient Medications: Current Inpatient Medications Medications (Trade) Dose Ordered Sig/Lorena Route Start Time Stop Time Status Last Admin Dose Admin Acetaminophen (Tylenol Tab) 650 mg Q4H PRN PO 12/02/16 03:15 01/01/17 03:14 Al Hydrox/Mg Hydrox/Simethicone (Maalox Max Susp) 15 ml Q4H PRN PO 12/02/16 03:15 01/01/17 03:14 Magnesium Hydroxide (Milk Of Magnesia Susp) 30 ml Q6H PRN PO 12/02/16 03:15 01/01/17 03:14 Zolpidem Tartrate (Ambien Tab) 5 mg HSZ PRN PO 12/02/16 03:15 01/01/17 03:14 Ondansetron HCl (Zofran Inj) 4 mg Q6H PRN IV 12/02/16 03:15 01/01/17 03:14 Miconazole Nitrate (Desenex Powder) 1 appln PRN PRN EXT 12/02/16 05:30 01/01/17 05:29 Docusate Sodium (coLACE CAP) 100 mg BID PO 12/02/16 21:00 01/01/17 20:59 12/03/16 18:27 100 MG Polyethylene (Miralax Powder Packet) 17 gm TID PO 12/02/16 14:00 01/01/17 13:59 12/02/16 20:46 17 GM Morphine Sulfate (MoRPHine SULFATE INJ) 2 mg Q1H PRN IV 12/02/16 11:00 12/16/16 10:59 12/03/16 18:22 2 MG
[2016-12-03] MEDS: MoRPHine SULFATE 4 MG/ML 1 ML CARP\\VIAL IV PRN (21:31)
[2016-12-04] MEDS: MoRPHine SULFATE 4 MG/ML 1 ML CARP\\VIAL IV PRN ×5 (03:59→21:30)
[2016-12-04] MEDS: POLYETHYLENE (MIRALAX) 17 GM PACK PO SCH ×3 (11:38→21:30)
[2016-12-04] MEDS: DOCUSATE SODIUM/SENNA 50/8.6MG TAB PO SCH (11:38)
[2016-12-04 16:10] VITALS: O2SAT 94
--- NOTE | 2016-12-04 20:42 | Progress Note ---
Medicine Progress Note Date & Time of Visit: Dec 04, 2016 at 20:42. Subjective delayed entry date of service as noted above patient resting, comfortable states he feels fine overall pain well controlled has some urine output, incontinent though no chest pain, dyspnea, nausea, fever/chills Objective Last 8 Hrs Date Time Temp Pulse Resp B/P Pulse Ox O2 Delivery O2 Flow Rate FiO2 12/04/16 16:10 94 Room Air Physical Exam: General- oriented x 3 not in distress Eyes- anicteric Neck- sno JVD Lungs- clear to auscultation b/l , no rales/wheeze Heart- regular rhythm; no murmur Abdomen- normal bowel sounds, soft, nontender Genitals- swelling of the penis and scrotum with erythema (+) yellow discharge from the scrotum Extremities- no pretibial edema Assessment & Plan METASTATIC PENILE .SCROTAL .BLADDER CA - incontinent of urine per patient - PRN Morphine for pain Senokot S, Lactulose - Wound Care consult - possible transition to SNF with Hospice - Palliative Care SVC on board Current Inpatient Medications: Current Inpatient Medications Medications (Trade) Dose Ordered Sig/Lorena Route Start Time Stop Time Status Last Admin Dose Admin Acetaminophen (Tylenol Tab) 650 mg Q4H PRN PO 12/02/16 03:15 01/01/17 03:14 Al Hydrox/Mg Hydrox/Simethicone (Maalox Max Susp) 15 ml Q4H PRN PO 12/02/16 03:15 01/01/17 03:14 Magnesium Hydroxide (Milk Of Magnesia Susp) 30 ml Q6H PRN PO 12/02/16 03:15 01/01/17 03:14 Zolpidem Tartrate (Ambien Tab) 5 mg HSZ PRN PO 12/02/16 03:15 01/01/17 03:14 Ondansetron HCl (Zofran Inj) 4 mg Q6H PRN IV 12/02/16 03:15 01/01/17 03:14 Miconazole Nitrate (Desenex Powder) 1 appln PRN PRN EXT 12/02/16 05:30 01/01/17 05:29 Polyethylene (Miralax Powder Packet) 17 gm TID PO 12/02/16 14:00 01/01/17 13:59 12/04/16 11:38 17 GM Senna/Docusate Sodium (Senokot S Tab) 1 tab QAM PO 12/04/16 08:00 01/03/17 07:59 12/04/16 11:38 1 TAB Morphine Sulfate (MoRPHine SULFATE INJ) 4 mg Q3H PRN IV 12/03/16 21:15 12/17/16 21:14 12/04/16 16:32 4 MG
[2016-12-04] MEDS ORDERED: LACTULOSE SYRUP 30 GM/45 ML UDP PO PRN (21:00)
[2016-12-05] MEDS: MoRPHine SULFATE 4 MG/ML 1 ML CARP\\VIAL IV PRN ×4 (00:27→22:38)
[2016-12-05] MEDS: DOCUSATE SODIUM/SENNA 50/8.6MG TAB PO SCH (08:18)
[2016-12-05] MEDS: POLYETHYLENE (MIRALAX) 17 GM PACK PO SCH ×3 (08:18→20:00)
[2016-12-05 08:30] VITALS: O2SAT 94
--- NOTE | 2016-12-05 18:43 | Progress Note ---
Medicine Progress Note Date & Time of Visit: Dec 05, 2016 at 18:41. Subjective seen resting in bed, comfortable states urine is "leaking" lower abdominal pain is controlled no other symptoms states he is going to SNF tomorrow Objective Last 8 Hrs Date Time Temp Pulse Resp B/P Pulse Ox O2 Delivery O2 Flow Rate FiO2 12/05/16 15:05 Room Air Physical Exam: General- oriented x 3 not in distress Eyes- anicteric Neck- supple, no JVD Lungs- clear to auscultation b/l Heart- regular rhythm; no murmur Abdomen- normal bowel sounds, soft, nontender Extremities- no pretibial edema Assessment & Plan METASTATIC PENILE .SCROTAL .BLADDER CA - patient states he has urinary incontinence - PRN Morphine for pain, pain adequately controlled per patient Senokot S, Lactulose PRN - possible transition to SNF with Hospice - Palliative Care SVC on board Current Inpatient Medications: Current Inpatient Medications Medications (Trade) Dose Ordered Sig/Lorena Route Start Time Stop Time Status Last Admin Dose Admin Acetaminophen (Tylenol Tab) 650 mg Q4H PRN PO 12/02/16 03:15 01/01/17 03:14 Al Hydrox/Mg Hydrox/Simethicone (Maalox Max Susp) 15 ml Q4H PRN PO 12/02/16 03:15 01/01/17 03:14 Magnesium Hydroxide (Milk Of Magnesia Susp) 30 ml Q6H PRN PO 12/02/16 03:15 01/01/17 03:14 Zolpidem Tartrate (Ambien Tab) 5 mg HSZ PRN PO 12/02/16 03:15 01/01/17 03:14 Ondansetron HCl (Zofran Inj) 4 mg Q6H PRN IV 12/02/16 03:15 01/01/17 03:14 Miconazole Nitrate (Desenex Powder) 1 appln PRN PRN EXT 12/02/16 05:30 01/01/17 05:29 Polyethylene (Miralax Powder Packet) 17 gm TID PO 12/02/16 14:00 01/01/17 13:59 12/05/16 08:18 17 GM Senna/Docusate Sodium (Senokot S Tab) 1 tab QAM PO 12/04/16 08:00 01/03/17 07:59 12/05/16 08:18 1 TAB Morphine Sulfate (MoRPHine SULFATE INJ) 4 mg Q3H PRN IV 12/03/16 21:15 12/17/16 21:14 12/05/16 14:24 4 MG Lactulose (Chronulac Syrup) 30 gm DAILY PRN PO 12/04/16 21:00 01/03/17 20:59 12/04/16 21:29 30 GM
[2016-12-05 22:00] VITALS: O2SAT 94
[2016-12-06 00:24] VITALS: O2SAT 94
[2016-12-06] MEDS: POLYETHYLENE (MIRALAX) 17 GM PACK PO SCH (07:44)
[2016-12-06] MEDS: DOCUSATE SODIUM/SENNA 50/8.6MG TAB PO SCH (07:44)
[2016-12-06] MEDS: MoRPHine SULFATE 4 MG/ML 1 ML CARP\\VIAL IV PRN (07:53)
[2016-12-06 08:30] VITALS: O2SAT 94
[2016-12-06 13:57] VITALS: BP 142/93; PULSE 61; TEMP 36.3; O2SAT 94
--- NOTE | 2016-12-06 14:30 | Progress Note ---
Medicine Progress Note Date & Time of Visit: Dec 06, 2016 at 14:29. Subjective patient seen resting in bed, comfortable pain adequately controlled per patient has urinary incontinence no BM yet denies chest pain, dyspnea, nausea no other symptoms states he is ready for transfer to [facility] still confirms that he just wants comfort measures, even if this leads to worsening of medical condition and demise Objective Last 8 Hrs Date Time Temp Pulse Resp B/P Pulse Ox O2 Delivery O2 Flow Rate FiO2 12/06/16 13:57 36.3 61 18 94 Room Air 12/06/16 08:30 94 Room Air Physical Exam: General- oriented x 3 not in distress Eyes- anicteric Lungs- clear to auscultation no rales/wheeze bilaterally Heart- regular rhythm; no murmur Abdomen- normal bowel sounds, soft, nontender Extremities- no pretibial edema Assessment & Plan METASTATIC PENILE .SCROTAL .BLADDER CANCER POSSIBLE SCROTAL INFECTION - recently diagnoes at Urology office on 11/22/16 (+) wide spread metastatic Ca and locally advanced disease patient declined to have chemo or radiation given his co-morbidities -not a candidate for aggressive treatment presented with Urinary retention , sepsis due to UTI , weakness, fall , failure to thrive case discussed with Dr Parnell -pt was already informed regarding Hospice care in office - patient has requested comfort measures status only - while in the hospital, noted to be voiding to some degree; incontinent - given PRN Morphine for pain Senokot S, Lactulose - overall, remained comfortable adamantly refusing any type of intervention or procedures - Palliative Care consulted - Wound Care consulted - transition to [facility] with Hospice Services DM TYPE 2 - was on Metformin HTN - was on Amlodipine, Lasix, Aspirni Gout - was on Allopurinol Disposition [facility] with Hospice Services discussed with patient and he is comfortable and agreeable with plan of care Current Inpatient Medications: Current Inpatient Medications Medications (Trade) Dose Ordered Sig/Lorena Route Start Time Stop Time Status Last Admin Dose Admin Acetaminophen (Tylenol Tab) 650 mg Q4H PRN PO 12/02/16 03:15 01/01/17 03:14 Al Hydrox/Mg Hydrox/Simethicone (Maalox Max Susp) 15 ml Q4H PRN PO 12/02/16 03:15 01/01/17 03:14 Magnesium Hydroxide (Milk Of Magnesia Susp) 30 ml Q6H PRN PO 12/02/16 03:15 01/01/17 03:14 Zolpidem Tartrate (Ambien Tab) 5 mg HSZ PRN PO 12/02/16 03:15 01/01/17 03:14 12/06/16 00:09 5 MG Ondansetron HCl (Zofran Inj) 4 mg Q6H PRN IV 12/02/16 03:15 01/01/17 03:14 Miconazole Nitrate (Desenex Powder) 1 appln PRN PRN EXT 12/02/16 05:30 01/01/17 05:29 Polyethylene (Miralax Powder Packet) 17 gm TID PO 12/02/16 14:00 01/01/17 13:59 12/06/16 07:44 17 GM Senna/Docusate Sodium (Senokot S Tab) 1 tab QAM PO 12/04/16 08:00 01/03/17 07:59 12/06/16 07:44 1 TAB Morphine Sulfate (MoRPHine SULFATE INJ) 4 mg Q3H PRN IV 12/03/16 21:15 12/17/16 21:14 12/06/16 07:53 4 MG Lactulose (Chronulac Syrup) 30 gm DAILY PRN PO 12/04/16 21:00 01/03/17 20:59 12/04/16 21:29 30 GM
[2016-12-06] MEDS ORDERED: TYL325X PO (14:38)
[2016-12-06] MEDS ORDERED: Roxanol PO (14:38)
[2016-12-06] MEDS ORDERED: MCTP EXT (14:38)
[2016-12-06] MEDS ORDERED: MRLP17 PO (14:38)
[2016-12-06] MEDS ORDERED: SENN8.6T7 PO (14:38)
[2016-12-06] MEDS ORDERED: LCTL45 PO (14:38)
--- NOTE | 2016-12-06 14:40 | Discharge Instructions ---
Discharge Instructions Date of Service Dec 06, 2016. Admission Reason for Admission: Urinary Retention Discharge Discharge Diagnosis / Problem: URINARY RETENTION, BLADDER CANCER Discharge Goals Goal(s): Diagnostic testing, Therapeutic intervention Activity Recommendations Activity Level: Assistance Required . Additional Information Patient informed of condition: Yes Advance Directives: No (UNKNOWN) DNR: Yes Level of Care: Skilled Communicable Disease: No Prognosis: Other (GUARDED) Instructions / Follow-Up Instructions / Follow-Up PLEASE REFER TO HOSPITAL DISCHARGE SUMMARY Current Hospital Diet Patient's current hospital diet: Regular Diet Discharge Diet Recommended Diet: AHA Diet (Heart Healthy), Diabetes Type 2 Diet Pending Studies Studies pending at discharge: no Physician Orders On Transfer Special Precautions: PLEASE REFER TO HOSPITAL DISCHARGE SUMMARY Medical Emergencies . Who to Call and When: Medical Emergencies: If at any time you feel your situation is an emergency, please call 911 immediately. . Non-Emergent Contact Non-Emergency issues call your: Primary Care Provider . 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 "Provider Documentation" section prepared by Cosme Tate. Core Measure Problem Core Measures: None
--- NOTE | 2016-12-06 21:02 | Discharge Summary ---
Discharge Summary Date of Service Dec 06, 2016. Discharge Summary Admission Date: Dec 02, 2016 at 02:51 Discharge Date: Dec 06, 2016 Discharge Disposition: halfway facility Principal Diagnosis: METASTATIC PENILE .SCROTAL .BLADDER CANCER POSSIBLE SCROTAL INFECTION Secondary Diagnoses/Problems: Please refer to hospital course below. Procedures: LIVER US IMPRESSION: 1. Fatty liver. 2. Slight nodularity of the liver surface and heterogeneity of the liver which may reflect cirrhosis. 3. No biliary ductal dilatation. 4. Cholelithiasis. No sonographic evidence of acute cholecystitis. 5. Obscured pancreas. CT ABDOMEN/PELVIS: IMPRESSION: 1. Significantly suboptimal examination without oral and IV contrast. 2. There are no acute infectious or inflammatory findings in the abdomen or pelvis. 3. There is a 3.2 cm spiculated mass at the right lung base. This is highly concerning for lung cancer. 4. There are additional pulmonary nodules seen in the lower lobes bilaterally. 5. Cirrhotic liver morphology. 6. Cholelithiasis. 7. Cardiomegaly. 8. Enlarged inguinal lymph nodes are nonspecific and may be reactive. Clinical correlation will be required. 9. Additional findings as above. Consultations: PALLIATIVE CARE SERVICE Medication Reconciliation New Medications: [Roxanol] () 10 MG PO Q4H PRN for Pain, #120 MG 0 Refills Acetaminophen (Tylenol) 325 Mg Tab 650 MG PO Q4H PRN for Pain or Fever for 30 Days Lactulose (Lactulose) 30 Gm/45 Ml Syrp 30 GM PO DAILY PRN for Constipation for 10 Days, #450 ML 2 Refills Miconazole Nitrate (Desenex Shake Powder) 43 Appln/43 Gm Powd 1 APPLN EXT PRN PRN for Affected Skin Folds for 30 Days Polyethylene (Miralax) 17 Gm Pow 17 GM PO TID for 30 Days Sennosides-Docusate Sodium (Senokot S) 1 Tab Tab 1 TAB PO QAM for 30 Days Discontinued Medications: Allopurinol (Zyloprim) 100 Mg Tab 100 MG PO DAILY Amlodipine (Norvasc) 5 Mg Tab 5 MG PO DAILY, 0 Refills Aspirin (Aspirin Ec) 81 Mg Tab 81 MG PO DAILY Ciprofloxacin Tab (Cipro) 250 Mg Tab 250 MG PO Q12 for 7 Days Docusate Sodium (Docusate Sodium) 100 Mg Cap 100 MG PO DAILY Ferrous Gluconate (Fe Gluconate) 325 Mg Tab 325 MG PO DAILY Furosemide (Lasix) 20 Mg Tab 20 MG PO QAM, 3 Refills Furosemide (Lasix) 20 Mg Tab 20 MG PO 2XWK take additional 20mg at 3pm on friday & friday Metformin Hcl (Glucophage) 1,000 Mg Tab 1000 MG PO BID Admission Information HPI (per Admitting provider): This is a 76 yo M recently diagnosed with metastatic penile ,scrotal , bladder cancer with Mets to lungs presented to ED with poor appetite, generalized weakness, unable to void WBC elevated 21K unable to pass catheter as 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 Seen at [facility] Urology clinic by Dr Parnell on -for evaluation of Hematuria , bladder USG shows numerous mass, has necrotic growth in penis very advanced malignancy with localized invasion -necrosis of penis , pt refused to have any chemo , radiation tx done Hospice was recommended by Urology pt lives by himself alone , with metastatic Ca very poor prognosis, failure to thrive D/w Pt at bedside -willing for comfort care /hospice social service /palliative care consult requested Physical Exam (per Admitting): General Appearance: + obese Eyes: sclerae normal Respiratory/Chest: lungs clear, normal breath sounds, no respiratory distress Cardiovascular: regular rate, rhythm Abdomen/GI: soft, + distended Genitourinary - Male: + penile abnormality (complete destruction of uretheal orifice due cancer , red indudated scrotum with foul smelling , necrotic tisseue and pulurent drainage ), + urethral discharge Extremities/Musculoskelatal: + pedal edema (2-3 ) Neurologic/Psych: alert, oriented x 3 Hospital Course METASTATIC PENILE .SCROTAL .BLADDER CANCER POSSIBLE SCROTAL INFECTION - recently diagnosed at Urology office on 11/22/16 (+) wide spread metastatic Ca and locally advanced disease patient declined to have chemo or radiation given his co-morbidities -not a candidate for aggressive treatment presented with Urinary retention , sepsis due to UTI , weakness, fall , failure to thrive case discussed with Dr Parnell -pt was already informed regarding Hospice care in office - patient has requested comfort measures status only - while in the hospital, noted to be voiding to some degree; incontinent - given PRN Morphine for pain Senokot S, Lactulose - overall, remained comfortable adamantly refusing any type of intervention or procedures - Palliative Care consulted - Wound Care consulted - transition to [facility] with Hospice Services DM TYPE 2 - was on Metformin HTN - was on Amlodipine, Lasix, Aspirni Gout - was on Allopurinol Disposition [facility] with Hospice Services discussed with patient and he is comfortable and agreeable with plan of care Total time spent on discharge = 30 MINUTES This includes examination of the patient, discharge planning, medication reconciliation, and communication with other providers. Discharge Instructions Discharge Instructions Date of Service Dec 06, 2016. Admission Reason for Admission: Urinary Retention Discharge Discharge Diagnosis / Problem: URINARY RETENTION, BLADDER CANCER Discharge Goals Goal(s): Diagnostic testing, Therapeutic intervention Activity Recommendations Activity Level: Assistance Required . Additional Information Patient informed of condition: Yes Advance Directives: No (UNKNOWN) DNR: Yes Level of Care: Skilled Communicable Disease: No Prognosis: Other (GUARDED) Instructions / Follow-Up Instructions / Follow-Up PLEASE REFER TO HOSPITAL DISCHARGE SUMMARY Current Hospital Diet Patient's current hospital diet: Regular Diet Discharge Diet Recommended Diet: AHA Diet (Heart Healthy), Diabetes Type 2 Diet Pending Studies Studies pending at discharge: no Physician Orders On Transfer Special Precautions: PLEASE REFER TO HOSPITAL DISCHARGE SUMMARY Medical Emergencies . Who to Call and When: Medical Emergencies: If at any time you feel your situation is an emergency, please call 911 immediately. . Non-Emergent Contact Non-Emergency issues call your: Primary Care Provider . 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 "Provider Documentation" section prepared by Cosme Tate. Core Measure Problem Core Measures: None
== END 2016-12-06 15:00 | DRG 872 ==
LOC: ENRESERVDT → ENRESERVTM → EDBD 23:10 → C.EDC 23:12 → C.MSW 12-02 02:51 → CANBEDREQ 12-02 13:35 → C.4E 12-02 21:43
PROVIDERS: ADMIT Hospitalist; ATTEND Internal Medicine
DX: A41.9 Sepsis, unspecified organism (principal); Z68.41 Body mass index [BMI] 40.0-44.9, adult; C78.02 Secondary malignant neoplasm of left lung; C78.01 Secondary malignant neoplasm of right lung; N39.0 Urinary tract infection, site not specified; C67.9 Malignant neoplasm of bladder, unspecified; Z51.5 Encounter for palliative care; E11.9 Type 2 diabetes mellitus without complications; M10.9 Gout, unspecified; E78.5 Hyperlipidemia, unspecified; I10 Essential (primary) hypertension; Z83.3 Family history of diabetes mellitus; F17.210 Nicotine dependence, cigarettes, uncomplicated; Z79.82 Long term (current) use of aspirin; Z79.899 Other long term (current) drug therapy; R33.9 Retention of urine, unspecified; K59.00 Constipation, unspecified; E66.9 Obesity, unspecified; Z66 Do not resuscitate; C60.9 Malignant neoplasm of penis, unspecified; C63.2 Malignant neoplasm of scrotum